=== PATIENT | female | born 1990 | race African-American/Black ===

== ENCOUNTER 2020-02-17 15:23 | Emergency (ER) | payer OTHER, SELFPAY ==
[2020-02-17 18:20] VITALS: BP 134/93; PULSE 87; RESP 16; TEMP 37.2; O2SAT 100; BMI 29.4
--- NOTE | 2020-02-17 18:48 | ED_ITS ---
HPI - Skin/Abscess/Foreign Bdy General Chief complaint: Wound/Laceration <SHASTA Barriga - Last Filed: 02/17/20 19:22> Stated complaint: ABSCESS <SHASTA Barriga - Last Filed: 02/17/20 19:22> Time Seen by Provider: 02/17/20 18:47 <SHASTA Barriga - Last Filed: 02/17/20 19:22> Source: patient <SHASTA Barriga - Last Filed: 02/17/20 19:22> Mode of arrival: ambulatory <SHASTA Barriga - Last Filed: 02/17/20 19:22> Limitations: no limitations <SHASTA Barriga - Last Filed: 02/17/20 19:22> History of Present Illness HPI narrative: 29 y/o presenting with left upper cheek abscess. Was recently on antibiotics for it with improvement however when antibiotics were completed the abscess recurred. She never had I&D, it spontaneously drained prior. <SHASTA Barriga - Last Filed: 02/17/20 19:22> MD complaint: abscess/boil <SHASTA Barriga - Last Filed: 02/17/20 19:22> Onset (ago): week(s) (2) <SHASTA Barriga - Last Filed: 02/17/20 19:22> Tetanus up to date: yes <SHASTA Barriga - Last Filed: 02/17/20 19:22> Location: face <SHASTA Barriga - Last Filed: 02/17/20 19:22> Severity: moderate <SHASTA Barriga - Last Filed: 02/17/20 19:22> Quality: stabbing and aching <SHASTA Barriga Last Filed: 02/17/20 19:22> Pain Consistency: intermittent <SHASTA Barriga - Last Filed: 02/17/20 19:22> Relieving factors: none <SHASTA Barriga Last Filed: 02/17/20 19:22> Exacerbating factors: palpation and movement <SHASTA Barriga - Last Filed: 02/17/20 19:22> Context: none <SHASTA Barriga Last Filed: 02/17/20 19:22> Associated symptoms: denies other symptoms <SHASTA Barriga Last Filed: 02/17/20 19:22> Treatments prior to arrival: none <SHASTA Barriga Last Filed: 02/17/20 19:22> Related Data Home medications: Previous Rx's Medication Instructions Recorded cephalexin [Keflex] 500 mg PO QID #28 cap 02/17/20 doxycycline monohydrate 100 mg PO BID #14 cap 02/17/20 <SHASTA Barriga Last Filed: 02/17/20 19:22> Allergies/Adverse reactions: Allergies Allergy/AdvReac Type Severity Reaction Status Date / Time N.K.D.A. Allergy Unknown Unknown Uncoded 02/17/20 18:28 <SHASTA Barriga Last Filed: 02/17/20 19:22> Review of Systems Review of Systems: Yes all other systems are reviewed and are negative <SHASTA Barriga Last Filed: 02/17/20 19:22> [facility] Past Medical History Medical History: Medical History (Updated 02/18/20 @ 00:01 by Luci Lyle) section wound complication Hypothyroid <SHASTA Barriga Last Filed: 02/17/20 19:22> Surgical History: Surgical History (Updated 02/17/20 @ 18:24 by Teresita Blum) S/P removal of thyroid nodule Status post removal of thyroid nodule <SHASTA Barriga Last Filed: 02/17/20 19:22> Social History Social History: Social History Smoked in Last 30 Days: No Use of substances other than those prescribed or required for medical reasons: No Advance Directives: No Advance Directives Information Provided: No <SHASTA Barriga Last Filed: 02/17/20 19:22> Physical Exam Vital Signs and I&O and Narrative: Vital Signs and I&O: Vital Signs Temp 99 F 02/17/20 19:45 Pulse 78 02/17/20 19:45 Resp 18 02/17/20 19:45 BP 133/86 02/17/20 19:45 Pulse Ox 100 02/17/20 19:45 Intake & Output 02/17/20 02/17/20 02/18/20 06:59 18:59 06:59 Weight 75.296 kg Body Mass Index 29.4 Appearance: Alert. Oriented X3. No acute distress. Face: 2cm x2cm abscess to superior left cheek with fluctuance and mild cellulitis Eyes: Pupils equal, round and reactive to light. ENT: Pharynx normal. Neck: Normal inspection. Neck supple. CVS: Normal heart rate and rhythm. Pulses normal. Respiratory: No respiratory distress. Breath sounds normal. Abdomen: Soft and nontender. Skin: Skin warm and dry. Normal skin color. Normal skin turgor. Extremities: No lower extremity edema. No lower extremity edema. Neuro: Oriented X 3. No motor deficit. No sensory deficit. <SHASTA Barriga Last Filed: 02/17/20 19:22> Vital Signs and I&O: Vital Signs Temp 99 F 02/17/20 19:45 Pulse 78 02/17/20 19:45 Resp 18 02/17/20 19:45 BP 133/86 02/17/20 19:45 Pulse Ox 100 02/17/20 19:45 Intake & Output 02/17/20 02/17/20 02/18/20 06:59 18:59 06:59 Weight 75.296 kg Body Mass Index 29.4 <Doug Lamb DO - Last Filed: 02/18/20 02:03> Course Course Hospital Course: facial abscess that is amenable to drainage - see procedure note <SHASTA Barriga Last Filed: 02/17/20 19:22> Procedures Abscess I/D Site: face <SHASTA Barriga Last Filed: 02/17/20 19:22> Side (if applicable): left <SHASTA Barriga Last Filed: 02/17/20 19:22> Local Anesthetic: lidocaine 2% <SHASTA Barriga Last Filed: 02/17/20 19:22> Technique: incised with blade <SHASTA Barriga Last Filed: 02/17/20 19:22> Sent for culture/gram staining?: No <SHASTA Barriga Last Filed: 02/17/20 19:22> Irrigation: Yes <SHASTA Barriga Last Filed: 02/17/20 19:22> Packing used?: iodoform <SHASTA Barriga - Last Filed: 02/17/20 19:22> Complications: pain <SHASTA Barriga Last Filed: 02/17/20 19:22> MDM - Skin/Abscess/Foreign Bdy Differential Diagnosis Differential diagnosis: Likely abscess of skin or subcutaneous tissue, allergic reaction to drug and cellulitis <SHASTA Barriga - Last Filed: 02/17/20 19:22> Discharge Plan Discharge Clinical Impression: Abscess <SHASTA Barriga Last Filed: 02/17/20 19:22> Patient Disposition: Home, Self-Care <SHASTA Barriga - Last Filed: 02/17/20 19:22> Instructions: Abscess Incision and Drainage (DC) <SHASTA Barriga Last Filed: 02/17/20 19:22> Additional Instructions: Use warm compresses to the area several times per day. Monitor for signs of worsening infection including redness, warmth, swelling and pain Continue BOTH antibitoics until they are gone <SHASTA Barriga - Last Filed: 02/17/20 19:22> Prescriptions: New doxycycline monohydrate 100 mg capsule 100 mg PO BID Qty: 14 RF: 0 cephalexin [Keflex] 500 mg capsule 500 mg PO QID Qty: 28 RF: 0 <SHASTA Barriga - Last Filed: 02/17/20 19:22> Stand Alone Forms: Work/School Release <SHASTA Barriga - Last Filed: 02/17/20 19:22> Interventions: ED Discharge Assessment Last Done: 02/17/20 20:28 <SHASTA Barriga Last Filed: 02/17/20 19:22> Discharge Date/Time: 02/17/20 20:00 <SHASTA Barriga - Last Filed: 02/17/20 19:22>
--- NOTE | 2020-02-17 19:30 | PC.NURSE ---
PT ABSCESS TO LEFT UPPER CHEEK CLEANED AND DRAINED AND DSD APPLIED BY SHASTA ROSALES.
[2020-02-17 19:45] VITALS: BP 133/86; PULSE 78; RESP 18; TEMP 37.2; O2SAT 100
[2020-02-17] MEDS: Lidocaine HCl 2 % MPF 5 ML VIAL INFILTRATI (19:54)
[2020-02-17] MEDS: cephALEXin 500 MG CAPSULE PO (19:56)
== END 2020-02-17 20:00 | disposition home or self-care (01) ==
PROVIDERS: Emergency Provider Emergency Medicine; PCP Internal Medicine
DX: L02.01 Cutaneous abscess of face (principal)
CPT/HCPCS: 10060; 90471; 99284

== ENCOUNTER 2021-01-27 17:21 | Emergency (ER) | payer OTHER, SELFPAY ==
[2021-01-27 19:29] VITALS: BP 132/91; PULSE 100; RESP 18; TEMP 37.8; O2SAT 98; BMI 30.3
[2021-01-27] MEDS: oxyCODONE HCl Immed Release 5 MG TABLET PO (20:24)
--- NOTE | 2021-01-27 20:33 | ED_ITS ---
HPI - Skin/Abscess/Foreign Bdy General Chief complaint: Skin/Abscess/Foreign Body Stated complaint: Abscess Time Seen by Provider: 01/27/21 20:03 Source: patient Mode of arrival: ambulatory Limitations: no limitations History of Present Illness HPI narrative: patient presents to ED for pain under left axillary area. Patient had a mass there for years but now has painful past couple days. patient denies any drainage from the area. Related Data Previous Rx's Medication Instructions Recorded cephalexin 500 mg capsule (Keflex) 500 mg PO QID #28 cap 02/17/20 doxycycline monohydrate 100 mg 100 mg PO BID #14 cap 02/17/20 capsule levothyroxine 88 mcg tablet 88 mcg PO DAILY 90 Days #90 tab 03/14/20 doxycycline hyclate 100 mg capsule 100 mg PO BID 7 Days #14 cap 01/27/21 oxycodone-acetaminophen 5 mg-325 1 tab PO TID PRN #9 tab 01/27/21 mg tablet (Percocet) Allergies Allergy/AdvReac Type Severity Reaction Status Date / Time N.K.D.A. Allergy Unknown Unknown Uncoded 02/17/20 18:28 Review of Systems Review of Systems: Yes all other systems are reviewed and are negative Constitutional: Constitutional: Reports as per HPI and Reports no additional constitutional complaints Eyes: Eyes: Reports as per HPI and Reports no additional eye complaints ENT: Reports system reviewed and no additional complaints, except as documented and Reports as per HPI Cardiovascular: Cardiovascular: Reports as per HPI and Reports no additional cardiovascular complaints Respiratory: Respiratory: Reports as per HPI and Reports no additional respiratory complaints Gastrointestinal: Gastrointestinal: Reports as per HPI and Reports no additi onal gastrointestinal complaints Genitourinary: Genitourinary: Reports no additional female genitourinary complaints and Reports as per HPI Musculoskeletal: Musculoskeletal: Reports no additional musculoskeletal complaints and Reports as per HPI Integumentary/Breasts: Skin/Breast: Reports system reviewed and no additional complaints, except as docu and Reports as per HPI Comments: Left axillary lump Neurologic: Reports system reviewed and no additional complaints, except as documented and Reports as per HPI Psychiatric: Psychiatric: Reports no additional psychiatric complaints and Reports as per HPI PMFSH Past Medical History Medical History (Updated 01/28/21 @ 00:01 by Luci Lyle) section wound complication Hypothyroid Surgical History (Updated 10/02/20 @ 18:24 by Teresita Maria S/P removal of thyroid nodule Status post removal of thyroid nodule Social History Social History Advance Directives: No Patient : No Physical Exam Vital Signs: Vital Signs: Last Vital Signs Temp 100.1 F 01/27/21 19:29 Pulse 100 01/27/21 19:29 Resp 18 01/27/21 19:29 BP 132/91 H 01/27/21 19:29 Pulse Ox 98 01/27/21 19:29 Body Mass Index 30.3 Const: General: cooperative, healthy appearing, comfortable, no acute distress, well developed, alert, awake and Physically active Orientation/consciousness: patient oriented x3 HENMT: Head: Yes normal to inspection, Yes No palpable skull fracture present, Yes normocephalic, Yes atraumatic and No abrasion Eyes: General: appearance normal, both eyes and all related structures Neck: Neck: Yes normal visual inspection, Yes full ROM, Yes no lymphadenopathy, Yes no meningeal signs, Yes trachea midline, Yes supple and No tender Chest: Chest palpation & inspection: normal inspection of the chest and normal palpation of entire chest wall Chest/axillae images: 1. positive for tender hidradenitis suppperiva. negative for any drainage. Resp: Effort & Inspection: normal respiratory effort and able to speak in complete sentences Auscultation: clear to auscultation bilaterally Cardio: Jugular venous distension: no JVD Heart sounds: S1 normal heart sound present and S2 normal heart sound present : General: No CVA tenderness and Yes no CVA tenderness Back/Spine/Pelvis: Back: no CVA tenderness, No CVA tenderness and No back tenderness Skin: General skin exam: no rashes or lesions noted and elasticity normal Neuro: General: patient oriented x3, no meningeal signs and CN's II-XI intact bilaterally Cranial nerves: Yes CN's II-XII intact bilaterally Extrem: General: Yes normal to inspection and Yes full ROM Psych: Appearance: grossly normal, well kempt and not disheveled Course Course Course Narrative: patient given Tylenol and oxycodone. Reevaluation(s) Reevaluation #1: Physical exam indicate hidradenitis. Patient given 1st dose of doxycycline the ER patient given number of surgeon to follow-up to call. Time: 20:40 MDM - Skin/Abscess/Foreign Bdy MDM Narrative Medical decision making narrative: Hidradenitis suppurativa Discharge Plan Discharge Clinical Impression: Hidradenitis suppurativa of left axilla Patient Disposition: Home, Self-Care Instructions: Hidradenitis Suppurativa (ED) Additional Instructions: return to the ED immediately for any worsening pain, swelling, pus discharge, foul odor, weakness, intractable fever, chills, any other concerning symptoms. Recommend warm compress 4 times a day for 15 minutes on left axillary mass. Do any follow-up with surgery for hidradenitis. Prescriptions: New doxycycline hyclate 100 mg capsule 100 mg PO BID 7 Days Qty: 14 RF: 0 oxycodone-acetaminophen [Percocet] 5-325 mg tablet 1 tab PO TID PRN (Reason: pain) Qty: 9 RF: 0 No Action levothyroxine 88 mcg tablet 88 mcg PO DAILY 90 Days Qty: 90 RF: 3 doxycycline monohydrate 100 mg capsule 100 mg PO BID Qty: 14 RF: 0 cephalexin [Keflex] 500 mg capsule 500 mg PO QID Qty: 28 RF: 0 Referrals: Ronny Resendiz MD [Physician] - 2 days (left Hidranedinitis suppurativa) Stand Alone Forms: Work/School Release Interventions: ED Discharge Assessment Last Done: 01/27/21 21:22 Discharge Date/Time: 01/27/21 21:24 Print Language: Sinhala
[2021-01-27] MEDS: Acetaminophen 325 MG TABLET 650 MG PO (20:44)
== END 2021-01-27 21:24 | disposition home or self-care (01) ==
PROVIDERS: Emergency Provider Emergency Medicine; PCP Internal Medicine
DX: L73.2 Hidradenitis suppurativa (principal); Z79.899 Other long term (current) drug therapy
CPT/HCPCS: 99284

== ENCOUNTER 2021-04-24 20:24 | Emergency (ER) | payer OTHER, SELFPAY ==
--- NOTE | ~2021-04-24 | CT_ITS ---
EXAMINATION: CT ABDOMEN AND PELVIS WITH CONTRAST CLINICAL INFORMATION: Bilateral flank pain COMPARISON: None TECHNIQUE: Multidetector volumetric images were obtained from the superior aspect of the liver through the pubic symphysis following administration 85 mL of Omnipaque 350 intravenous contrast. Sagittal and coronal reformatted images were obtained on the technologist's workstation. Oral contrast: No This CT examination was performed using dose optimization techniques as appropriate, variously including the following: *Automated exposure control *Adjustment of mA and/or kV according to patient size (this includes techniques or standardized protocols for targeted exams where dose is matched to indication/reason for exam; i.e. extremities or head) *Use of iterative reconstruction technique DLP: 554 mGy-cm FINDINGS: LUNG BASES: The visualized lung bases are unremarkable. LIVER, GALLBLADDER, AND BILIARY TREE: The liver is normal in size, shape, and attenuation. No focal hepatic lesion or biliary ductal dilatation is present. The gallbladder is contracted but otherwise unremarkable with no evidence of radiopaque gallstones, gallbladder wall thickening, or obvious pericholecystic inflammatory changes. PANCREAS: Unremarkable. SPLEEN: Unremarkable. ADRENAL GLANDS: Unremarkable. KIDNEYS AND URETERS: The kidneys are normal in size, shape, and attenuation. A nonobstructing 3 mm left upper pole renal calculus is present. The stone measures 527 Hounsfield units which includes a fair amount of partial volume averaging. The stone is 9 cm from the posterior axillary line. No hydronephrosis, hydroureter, or other calculi seen. No perinephric stranding. BLADDER: Unremarkable. GASTROINTESTINAL TRACT: The small and large bowel are unremarkable. The appendix is unremarkable. ABDOMINAL WALL: No significant hernia is appreciated. There is some mild diastases of the rectus muscles above the umbilicus. LYMPH NODES: No retroperitoneal lymphadenopathy. Some prominent inguinal lymph nodes are present. VASCULAR: Unremarkable. PELVIC VISCERA: An anteverted slightly retroflexed uterus is present. Some small ovarian cysts are present bilaterally. An abnormal adnexal mass or free intraperitoneal fluid is not present. OSSEOUS STRUCTURES: Unremarkable. CT/CT abdomen pelvis w con IMPRESSION: No significant abnormality is detected aside from the presence of a 3 mm nonobstructing left renal calculus.. Fleischner guidelines were followed.
--- NOTE | ~2021-04-24 | XR_ITS ---
EXAMINATION: XR CHEST CLINICAL INFORMATION: Chest pressure COMPARISON: Chest x-ray 08/06/2018 TECHNIQUE: Frontal view of the chest was obtained. FINDINGS: No significant abnormality is noted involving the heart, lungs, mediastinum, bony thorax or soft tissues. XR/XR chest 1V IMPRESSION: Unremarkable examination.
[2021-04-24 20:28] VITALS: BP 151/91; PULSE 75; RESP 18; TEMP 36.7; O2SAT 100; BMI 30.1
--- NOTE | 2021-04-24 20:33 | ECG_ITS ---
Test Reason : CP Blood Pressure : / mmHG Vent. Rate : 075 BPM Atrial Rate : 075 BPM P-R Int : 140 ms QRS Dur : 082 ms QT Int : 376 ms P-R-T Axes : 043 028 028 degrees QTc Int : 419 ms Normal sinus rhythm Nonspecific T wave abnormality Abnormal ECG When compared with ECG of 10-DEC-2018 19:46, Nonspecific T wave abnormality no longer evident in Lateral leads Referred By: Generic ED Physician Electronically Signed By:Keanu Patel
[2021-04-24 21:09] LABS: MANUAL DIFF FLAG NO
[2021-04-24 21:10] LABS: Basophils Percent Auto 0.4 % (0-2); Eosinophils Absolute Auto 0.2 X10*3/uL (0.0-0.4); Eosinophils Percent Auto 2.5 % (0-4); Hematocrit 37.7 % (37.0-47.0); Hemoglobin 12.7 g/dl (12.0-16.0); Imm Gran Abs Auto 0.01 X10*3/uL (0.00-0.03); Imm Gran Pct Auto 0.1 % (0.0-0.4); Lymphocytes Percent Auto 36.1 % (20-40); Mean Corpuscular HGB Conc 33.7 g/dl (31.0-35.0); Mean Corpuscular Hemoglobin 29.8 pg (27.0-33.0); Mean Corpuscular Volume 88.5 fL (80.0-98.0); Mean Platelet Volume 9.5 fL (9.4-12.3); Monocytes Absolute Auto 0.5 X10*3/uL (0.1-1.2); Monocytes Percent Auto 5.6 % (2-11); Neutrophils Absolute Auto 4.6 x10*3/uL (2.0-8.3); Neutrophils Percent Auto 55.3 % (45-73); Platelet Count 295 X10*3/uL (160-400); Red Blood Count 4.26 X10*6/uL (4.20-5.50); Red Cell Distribution Width 14.3 % (11.0-16.0); White Blood Count 8.3 X10*3/uL (4.8-10.8)
[2021-04-24 21:28] LABS: Anion Gap 12 (12-20); Blood Urea Nitrogen 9 mg/dL (9-16); Calcium 9.3 mg/dL (8.4-10.2); Carbon Dioxide 26 mmol/L (22-29); Chloride 107 mmol/L (96-108); Creatinine Clr Calc Pharmacy 102.7; Estimated Glomerular Filt Rate > 60; Glucose Random 89 mg/dL (60-115); Potassium 3.7 mmol/L (3.3-5.1); Sodium 141 mmol/L (135-145)
[2021-04-24 21:33] LABS: Troponin-I High Sensitivity < 3.5 ng/L (<3.5-17.0)
--- NOTE | 2021-04-24 22:36 | ED.CHESTPAIN ---
HPI - Chest Pain General Chief Complaint: Chest Pain Stated Complaint: chest pain and maxim leg pain Time Seen by Provider: 04/24/21 22:36 Source: patient Mode of arrival: ambulatory History of Present Illness HPI narrative: 31-year-old female with presentation of 1 month lower back discomfort without saddle anesthesia and the pain radiates into both lower extremities and is not limited to the posterior aspect. Patient denies any bowel or bladder dysfunction and denies any fever, chills, sore throat, new cough, shortness of breath, nausea/vomiting/diarrhea, urinary pain/burning/frequency. She denies pursuing evaluation by her primary care provider and comes in tonight because she began having substernal chest pressure that did not change with exertion, position, respiration, and is described as nonradiating. Patient denies any recent exercise regimens and states that the bilateral leg pain has been so significant she has to walk with her toes curled under . Related Data Previous Rx's Medication Instructions Recorded cephalexin 500 mg capsule (Keflex) 500 mg PO QID #28 cap 02/17/20 doxycycline monohydrate 100 mg 100 mg PO BID #14 cap 02/17/20 capsule levothyroxine 88 mcg tablet 88 mcg PO DAILY 90 Days #90 tab 03/14/20 doxycycline hyclate 100 mg capsule 100 mg PO BID 7 Days #14 cap 01/27/21 oxycodone-acetaminophen 5 mg-325 1 tab PO TID PRN #9 tab 01/27/21 mg tablet (Percocet) Allergies Allergy/AdvReac Type Severity Reaction Status Date / Time No Known Allergies Allergy Verified 04/24/21 20:28 Review of Systems Review of Systems: Pertinent positives and negatives as stated in HPI 10 point review of systems is otherwise negative. [facility] Past Medical History Source: nursing notes reviewed Medical History section wound complication Hypothyroid Surgical History S/P removal of thyroid nodule Status post removal of thyroid nodule Social History Social History Advance Directives: No Advance Directives Information Provided: No Patient : No Physical Exam Vital Signs: Vital Signs: Last Vital Signs Temp 98.1 F 04/24/21 20:28 Pulse 75 04/24/21 20:28 Resp 18 04/24/21 20: BP 151/91 H 04/24/21 20: Pulse Ox 100 04/24/21 20: BMI result Body Mass Index 30.1 VITAL SIGNS: Reviewed. GENERAL: Well developed, well nourished, in no acute distress. HEAD: Normocephalic/atraumatic EYES: PERRLA, EOMI intact without pain, no nystagmus EARS: Ext canals without abnormality NOSE: Nares patent bilateral OROPHARYNX: no oral lesions noted, posterior pharynx clear NECK: Supple, no adenopathy, scar to anterior aspect consistent with thyroid surgery LUNGS: Normal breath sounds. No adventitious sounds or accessory muscle use. SpO2<100> CARDIOVASCULAR: Regular rate and rhythm without noted murmurs, no JVD or lower extremity edema. ABDOMEN: Soft, non-tender, non-distended with bowel sounds, no CVA tenderness MUSCULOSKELETAL: No tenderness, deformities, or effusions noted on gross inspection. EXTREMITIES: No cyanosis, clubbing or edema. SKIN: Inspection of the skin reveals no rashes NEUROLOGIC: Alert and oriented x 4. Strength and sensation to light touch were grossly intact x 4. Course Course Course Narrative: 31-year-old female with history and clinical presentation suggestive of possible musculoskeletal and will evaluate for electrolyte, infection, rhabdo. Patient has no history of IVDA or recent sore throat or procedural interventions. PERC negative. Patient provided with combination analgesics. Review of all investigations otherwise negative for acute findings and on re-evaluation patient states her pain has completely resolved after receiving the combination analgesics. She was strongly encouraged to follow-up with primary care provider for further outpatient workup and management and was also given analgesic regimen. MDM - Chest Pain Lab Data Result diagrams: 04/24/21 21:02 04/24/21 21:02 Labs: Lab Results 04/24/21 04/24/21 04/24/21 Range/Units 21: 21: 21: WBC 8.3 (4.8-10.8) X10*3/uL RBC 4.26 (4.20-5.50) X10*6/uL Hgb 12.7 (12.0-16.0) g/dl Hct 37.7 (37.0-47.0) % MCV 88.5 (80.0-98.0) fL MCH 29.8 (27.0-33.0) pg MCHC 33.7 (31.0-35.0) g/dl RDW 14.3 (11.0-16.0) % Plt Count 295 (160-400) X10*3/uL MPV 9.5 (9.4-12.3) fL Immature Gran % (Auto) 0.1 (0.0-0.4) % Neut % (Auto) 55.3 (45-73) % Lymph % (Auto) 36.1 (20-40) % [place] % (Auto) 5.6 (2-11) % Eos % (Auto) 2.5 (0-4) % Baso % (Auto) 0.4 (0-2) % Lymph # (Auto) 3.0 (1.2-4.9) X10*3/uL [place] # (Auto) 0.5 (0.1-1.2) X10*3/uL Eos # (Auto) 0.2 (0.0-0.4) X10*3/uL Baso # (Auto) 0.0 (0.0-0.2) X10*3/uL Abs Immat Gran (auto) 0.01 (0.00-0.03) X10*3/uL Absolute Neuts (auto) 4.6 (2.0-8.3) x10*3/uL Absolute Nucleated RBC 0.000 (0.0-0.012) X10*3/uL Nucleated RBC % (auto) 0.0 (0.0-0.2) /100WBC ESR (0-20) MM/HR Sodium 141 (135-145) mmol/L Potassium 3.7 (3.3-5.1) mmol/L Chloride 107 (96-108) mmol/L Carbon Dioxide 26 (22-29) mmol/L Anion Gap 12 (12-20) BUN 9 (9-16) mg/dL Creatinine 0.78 (0.5-1.4) mg/dL Estim Creat Clear Calc 102.7 Estimated GFR > 60 Random Glucose 89 (60-115) mg/dL Calcium 9.3 (8.4-10.2) mg/dL Total Creatine Kinase 138 (26-140) U/L Troponin I High Sens < 3.5 (<3.5-17.0) ng/L C-Reactive Protein 0.67 H (< or = 0.50) mg/dL TSH 3.14 (0.32-4.0) uIU/mL COVID-19 (HERB) (Negative) COVID-19 Clin Com 04/24/21 04/25/21 Range/Units 21:02 00:46 WBC (4.8-10.8) X10*3/uL RBC (4.20-5.50) X10*6/uL Hgb (12.0-16.0) g/dl Hct (37.0-47.0) % MCV (80.0-98.0) fL MCH (27.0-33.0) pg MCHC (31.0-35.0) g/dl RDW (11.0-16.0) % Plt Count (160-400) X10*3/uL MPV (9.4-12.3) fL Immature Gran % (Auto) (0.0-0.4) % Neut % (Auto) (45-73) % Lymph % (Auto) (20-40) % [place] % (Auto) (2-11) % Eos % (Auto) (0-4) % Baso % (Auto) (0-2) % Lymph # (Auto) (1.2-4.9) X10*3/uL [place] # (Auto) (0.1-1.2) X10*3/uL Eos # (Auto) (0.0-0.4) X10*3/uL Baso # (Auto) (0.0-0.2) X10*3/uL Abs Immat Gran (auto) (0.00-0.03) X10*3/uL Absolute Neuts (auto) (2.0-8.3) x10*3/uL Absolute Nucleated RBC (0.0-0.012) X10*3/uL Nucleated RBC % (auto) (0.0-0.2) /100WBC ESR 12 (0-20) MM/HR Sodium (135-145) mmol/L Potassium (3.3-5.1) mmol/L Chloride (96-108) mmol/L Carbon Dioxide (22-29) mmol/L Anion Gap (12-20) BUN (9-16) mg/dL Creatinine (0.5-1.4) mg/dL Estim Creat Clear Calc Estimated GFR Random Glucose (60-115) mg/dL Calcium (8.4-10.2) mg/dL Total Creatine Kinase (26-140) U/L Troponin I High Sens (<3.5-17.0) ng/L C-Reactive Protein (< or = 0.50) mg/dL TSH (0.32-4.0) uIU/mL COVID-19 (HERB) Negative (Negative) COVID-19 Clin Com See Note Discharge Plan Discharge Clinical Impression: Atypical chest pain Patient Disposition: Home, Self-Care Instructions: Chest Pain (ED) Additional Instructions: 1. Tylenol 1000 mg, orally, every 6 hours as needed for pain control. Do not exceed 4000 mg within 24 hours. 2. Ibuprofen 400 mg, orally with milk or food, every 6 hours as needed for pain control. You may take this medication with Tylenol for increased symptom relief. 3. Lidocaine patch, these are available [id number] and should be apply to area of maximal pain as directed on the outside packaging. 4. Follow-up with your primary care provider in the next 1-2 days for further outpatient workup and management. Return to the ER for worsening symptoms. Prescriptions: No Action levothyroxine 88 mcg tablet 88 mcg PO DAILY 90 Days Qty: 90 RF: 3 doxycycline hyclate 100 mg capsule 100 mg PO BID 7 Days Qty: 14 RF: 0 oxycodone-acetaminophen [Percocet] 5-325 mg tablet 1 tab PO TID PRN (Reason: pain) Qty: 9 RF: 0 doxycycline monohydrate 100 mg capsule 100 mg PO BID Qty: 14 RF: 0 cephalexin [Keflex] 500 mg capsule 500 mg PO QID Qty: 28 RF: 0 Referrals: Arabella Bryan MD [Primary Care Provider] - 2 days
[2021-04-24] MEDS: Lidocaine 4 % Patch ADH..PATCH 1 PATCH TRANSDERMA (23:27)
[2021-04-24] MEDS: Acetaminophen 325 MG TABLET 975 MG PO (23:27)
[2021-04-24] MEDS: Ketorolac Tromethamine 15 MG/ML VIAL IM (23:27)
--- NOTE | 2021-04-24 23:31 | PC.NURSE ---
Pt medicated per MAR, aware of plan to CT. Pt states I can't, I need to get my kids. MD notified of pts request to leave.
[2021-04-25] LABS: Thyroid Stimulating Hormone 3.14 uIU/mL (0.32-4.0)
[2021-04-25 00:13] LABS: C Reactive Protein 0.67 mg/dL (< or = 0.50)
[2021-04-25] MEDS: iohexoL 350 MG/ML 100 ML INFUS..BTL 85 ML IV (00:22)
[2021-04-25 00:52] LABS: Erythrocyte Sedimentation Rate 12 MM/HR (0-20)
[2021-04-25 01:07] LABS: COVID-19 Test Negative (Negative); IDNOW Serial# 9DD0AD1C
[2021-04-25 01:18] VITALS: BP 131/90; PULSE 76; RESP 16; O2SAT 100
== END 2021-04-25 01:23 | disposition home or self-care (01) ==
PROVIDERS: Emergency Provider Student in an Organized Health Care Education/Training Program; PCP Internal Medicine
DX: R07.89 Other chest pain (principal); Z20.822 Contact with and (suspected) exposure to COVID-19
CPT/HCPCS: 36415; 71045; 74177; 80048; 82550; 84443; 84484; 85025; 85652; 86140; 87635; 93005; 96372; 99284; J1885; Q9967

== ENCOUNTER 2021-07-27 08:48 | Outpatient (REF) | payer OTHER, SELFPAY ==
[2021-07-29 04:35] LABS: HBS Num1 124.14 mIU/mL (0-7.99); HBc Num1 0.15 S/CO (0.00-0.79); Hepatitis B Core Antibody Nonreactive (Nonreactive); ~Hepatitis B Surface Antibody REACTIVE (Nonreactive)
[2021-07-29 04:42] LABS: Hepatitis B Surface Antigen Negative (Negative)
== END 2021-07-27 08:49 | disposition home or self-care (01) ==
LOC: HO.LAB 08:48
PROVIDERS: PCP Internal Medicine; Visit Provider Internal Medicine
DX: Z23 Encounter for immunization (principal); Z11.3 Encounter for screening for infections with a predominantly sexual mode of transmission
CPT/HCPCS: 36415; 86704; 86706; 86735; 86762; 86765; 86787; 87340

== ENCOUNTER → 2022-01-01 08:59 | Outpatient (BNVA) | payer SELFPAY | PROVIDERS: PCP Internal Medicine | DX: Z02.83 Encounter for blood-alcohol and blood-drug test (principal) ==

== ENCOUNTER 2022-05-22 10:44 | Outpatient (REF) | payer OTHER, SELFPAY ==
--- NOTE | ~2022-05-22 | MM_ITS ---
EXAMINATION: MM DIAGNOSTIC DIGITAL BREAST TOMOSYNTHESIS, BILATERAL US DIAGNOSTIC ULTRASOUND BREAST, RIGHT CLINICAL INFORMATION: 32-year-old with chronic palpable area mid upper outer right breast. History hidradenitis suppurativa. No prior breast imaging. The lifetime risk of breast cancer based on the Tyrer-Cuzick Model is 13%. COMPARISON: None (current study represents initial baseline exam). TECHNIQUE: Digital breast tomosynthesis is performed in both the craniocaudal and mediolateral oblique views along with computer-aided detection (CAD). Synthesized 2D images are generated from the tomosynthesis. Ultrasound right breast is targeted to the areas of palpable concern mid upper outer right breast along with additional imaging right axilla. Grayscale imaging and color Doppler are performed without and with harmonics. FINDINGS: Mammography: The breasts are heterogeneously dense, which may obscure small masses (ACR BI-RADS breast composition Category c). The breast parenchymal pattern is unremarkable with no significant mass or architectural abnormality. No abnormal calcifications. There is incidental intramammary node mid upper outer left breast measuring approximately 0.9 cm and a intramammary node mid upper outer right breast measuring approximately 0.7 cm. There is no significant focal skin thickening and no coarsening of the Patrick's ligaments. There is an oval lesion right axilla measuring approximately 2.2 cm. Left axilla are unremarkable. Ultrasound: Ultrasound right breast demonstrates subtle hypoechoic intradermal lesion long axis parallel to the skin 9:00 position 9 cm from nipple measuring approximately 0.3 cm thickness by 1.4 cm across. There is no surrounding hyperemia on color Doppler. No subdermal extension. Patient notes that this is a chronic finding. There is a second similar-appearing slightly smaller intradermal hypoechoic lesion 10:00 position 9 cm from nipple measuring 0.3 cm thickness by 0.9 cm across. This shows no surrounding hyperemia on color Doppler and no subdermal extension. Patient also notes that this is a chronic finding. Additional ultrasound right axilla demonstrates a heterogeneous predominantly cystic subdermal fluid collection measuring approximately 2.2 x 1.0 x 1.9 cm. There is increased through-transmission of sound. Prominent surrounding hyperemia areas present on color Doppler. Patient notes that this is a chronic finding and mildly tender. Results are discussed with the patient at time of visit. The right axillary lesion is inflamed. Availability of surgical management discussed. Navigator to call report to PCP. MM/MM tomosynthesis diagnostic BI IMPRESSION: -No mammographic evidence of malignancy. -Complex oval subdermal fluid collection right axilla with prominent surrounding hyperemia on color Doppler. Finding consistent with the patient's history of hidradenitis suppurativa. -Two small intradermal lesions right breast 9:00 and 10:00 positions. No subdermal extension or surrounding hyperemia on color Doppler. ASSESSMENT: BI-RADS 2: Benign RECOMMENDATION: 1. Patient should be managed based on the clinical impression. Surgical consult may be considered for the subdermal right axillary fluid collection with surrounding hyperemia. 2. Otherwise, routine annual screening mammography. This patient's information was entered into a reminder system with a target due date for their next mammogram.
== END 2022-05-22 10:45 | disposition home or self-care (01) ==
LOC: HO.MAMMO 10:44
PROVIDERS: PCP Internal Medicine; Visit Provider Internal Medicine
DX: N63.11 Unspecified lump in the right breast, upper outer quadrant (principal)
CPT/HCPCS: 76642; 77062; 77066

== ENCOUNTER → 2022-06-17 15:19 | Outpatient (BNVA) | payer OTHER, SELFPAY | PROVIDERS: PCP Internal Medicine; Referring Provider Internal Medicine; Visit Provider Surgery | DX: L73.2 Hidradenitis suppurativa (principal) | CPT/HCPCS: 99202 ==

== ENCOUNTER → 2022-07-17 14:59 | Outpatient (BNVA) | payer OTHER, SELFPAY | PROVIDERS: PCP Internal Medicine; Referring Provider Internal Medicine; Visit Provider Surgery | DX: L73.2 Hidradenitis suppurativa (principal) | CPT/HCPCS: 99212 ==

== ENCOUNTER 2022-08-04 05:58 | Day surgery (SDC) | payer OTHER, SELFPAY ==
[2022-07-28 15:33] VITALS: BMI 30.9
--- NOTE | 2022-08-01 10:49 | P.CONAN_ITS ---
Documented by User: Lucille Lewis NP 08/01/22 10:49 HPI - Anesthesia Eval Consult details Narrative: 32yo F for Bilateral Excision Hidradenitis of axillas PMFSH Active Problems Active Problems: All Active Problems (Updated 07/28/22 @ 15:33 by Allyn Jane RN) Allergic rhinitis (Acute) Environmental allergies (Acute) Physical exam (Acute) Encounter to establish care with new doctor (Acute) Tachycardia (Acute) Dizziness (Acute) Suppurative hidradenitis (Acute) ADD (attention deficit disorder) (Acute) Breast mass, right (Acute) Hypothyroid (Acute) Immunization due (Acute) Past Medical History Medical History ADD (attention deficit disorder) section wound complication Hypothyroid Immunization due Family History Family History Maternal Aunt Breast cancer Paternal Grandmother Ovarian cancer Surgical History Surgical History History of delivery Hx of thyroidectomy Social History Social History Housing: House Are you a primary eye care professional to a significant other at home: No Do you presently have visiting nurse or other home services: No Alcohol intake: never Patient Tobacco Use Status: Never used Tobacco e-Cigarette/Vaping Use: Never Used Second Hand Smoke Exposure: No Are you DNR?: No Advance Directives: No Advance Directives Information Provided: Yes Advance Directives on File: No Recently lost weight without trying: No Eating poorly because of decreased appetite: No Nutrition Risks: No Nutritional Risk Patient : No FDLMP: yrs ago : No Current occupational status: employed Cognitive needs: No Hearing needs: No Vision needs: Yes Meds Allergies Allergy/AdvReac Type Severity Reaction Status Date / Time No Known Allergies Allergy Verified 07/28/22 15:25 Home Medications Medication Instructions Recorded Confirmed Last Taken Type loratadine 10 mg tablet 1 tab PO DAILY 07/28/22 07/28/22 Unknown History Exam Exam Date and Time: August 01, 2022 1049 Height,Weight and Vital Signs: Height 5 ft 3 in Weight 79.379 kg Assessment and Plan Assessment Anesthesia Assessment: Chart Reviewed Documented by User: Elsa Francis MD 08/04/22 07:36 PMFSH Past Medical History Medical History ADD (attention deficit disorder) section wound complication Hypothyroid Immunization due Family History Family History Maternal Aunt Breast cancer Paternal Grandmother Ovarian cancer Family history of problems with anesthesia: No Surgical History Surgical History History of delivery Hx of thyroidectomy History of Problems with Anesthesia: No Social History Social History Housing: House Are you a primary eye care professional to a significant other at home: No Do you presently have visiting nurse or other home services: No Alcohol intake: never Patient Tobacco Use Status: Never used Tobacco e-Cigarette/Vaping Use: Never Used Second Hand Smoke Exposure: No Are you DNR?: No Advance Directives: No Advance Directives Information Provided: Yes Advance Directives on File: No Recently lost weight without trying: No Eating poorly because of decreased appetite: No Nutrition Risks: No Nutritional Risk Patient : No FDLMP: yrs ago : No Current occupational status: employed Cognitive needs: No Hearing needs: No Vision needs: Yes Meds Allergies Allergy/AdvReac Type Severity Reaction Status Date / Time No Known Allergies Allergy Verified 07/28/22 15:25 Home Medications Medication Instructions Recorded Confirmed Last Taken Type loratadine 10 mg tablet 1 tab PO DAILY 07/28/22 07/28/22 Unknown History Exam Height,Weight and Vital Signs: Height 5 ft 3 in Weight 79.379 kg Vital Signs Temp Pulse Resp BP Pulse Ox O2 Del Method 08/04/22 06:11 98.7 F 97 16 142/99 H 98 Room Air Pertinent Lab Results Pertinent Lab Results: Lab Results 03/20/23 Range/Units 06:02 Urine Test NEGATIVE (NEGATIVE) Airway Mallampati Class: III TM Dist: >3cm Neck ROM: Full Loose/Missing/Broken Teeth: No (Denies broken, loose, missing teeth) Heart: RRR Lungs: CTAB Assessment and Plan Assessment Anesthesia Assessment: Anesthesia Plan Discussed Final Anesthetic Review Family History of Problems with Anesthesia: No History of Problems with Anesthesia: No NPO: Yes ASA Class: II Final Preanesthetic Review: No Changes in Pt Med Stat, Meds/Allgs Chart Re viewed, Consent Obtained/Reviewed and Anes Risks/Benef Reviewed Patient Risk: Intermediate Procedure Risk: Low Assessment/Block/Sedation in SS: Assess/Block/Sedation-SS Anesthetic Plan Anesthetic Plan: GA Disposition: Standard PACU
[2022-08-04 06:11] VITALS: BP 142/99; PULSE 97; RESP 16; TEMP 37.1; O2SAT 98
[2022-08-04 06:17] LABS: UPreg QC Valid YES; Urine Pregnancy NEGATIVE (NEGATIVE)
[2022-08-04] MEDS: Lactated Ringers 1,000 ML 100 ML IVCONT (06:33)
--- NOTE | 2022-08-04 09:27 | P.OP_ITS ---
Operative Note Operative Note Date of Service: 08/04/22 Narrative: Preoperative diagnosis: Bilateral axillary hidradenitis Postoperative diagnosis: same Procedure: wide excision bilateral axillary hidradenitis Surgeon: Julian Tena MD Obstetrics Scrub Nurse: SIVA Winter Anesthesia: general LMA Indications for procedure: 32-year-old female patient with complaints of painful hidradenitis with drainage in bilateral axilla. Operative findings: Left axilla with extensive scarring and chronic hidradenitis. Right axilla with a small area of hidradenitis with cutaneous fistula Specimen: bilateral axillary hidradenitis Estimated blood loss: 20 mL Complications: none Procedure details: patient was brought to the OR placed in a supine position. After administering general anesthesia the patient's bilateral axilla were prepped with Betadine and draped in a sterile fashion. A surgical time-out was called and the consent confirmed. Patient received preoperative antibiotics and Venodyne boots were in place. Local anesthesia consisting of 0.5% Sensorcaine with epinephrine was then infiltrated starting in the right axilla. An elliptical incision was created oriented longitudinally across the axilla to include the axillary fistula. This was carried out through subcutaneous tissue. Incision measuring approximately 5 cm was then created around the hidradenitis. Electrocautery was then used to dissect the specimen off the subcutaneous tissue. This was sent to pathology for further examination. Hemostasis was assured using electrocautery. Dermis was then reapproximated using interrupted 3-0 Polysorb sutures. Skin was closed using a running subcuticular 4-0 Polysorb suture. A single 3-0 nylon suture was placed as a retention in the center of the incision. Sterile dressings consisting of 2 x 2 gauze and Tegaderm were then applied. Attention was then directed to the left axilla. Wider area of chronic scarring was identified. Local anesthesia was infiltrated circumferentially around the lesion. A wide area of excision was then performed measuring approximately 10 cm x 5 cm across the axilla and oriented transversely. This was carried out through subcutaneous tissue and around the chronic scarring. A small amount of purulent discharge was noted within the specimen. Specimen was passed off the table and sent to pathology for further examination. Hemostasis was then assured using electrocautery. Wounds were closed by advancing the inferior portion of the incision laterally to create a advancement flap using 3-0 Polysorb sutures. Dermis was then reapproximated using interrupted 3-0 Polysorb sutures. Skin was then closed using interrupted 3-0 nylon sutures. Sterile dressings consisting of fluff gauze and paper tape were then applied. The patient tolerated the procedure well. Sponge, instrument, and needle counts reported as correct. The patient was transferred to PACU in stable condition.
[2022-08-04 09:33] VITALS: BP 147/82; PULSE 92; RESP 18; TEMP 36.7; O2SAT 100
[2022-08-04 09:38] VITALS: BP 133/75; PULSE 118; RESP 18; O2SAT 100
[2022-08-04 09:43] VITALS: BP 136/77; PULSE 101; RESP 16; O2SAT 100
[2022-08-04 09:49] VITALS: BP 152/94; PULSE 102; RESP 16; O2SAT 100
[2022-08-04] MEDS: Acetaminophen 325 MG TABLET 650 MG PO (09:59)
[2022-08-04 10:04] VITALS: BP 157/95; PULSE 92; RESP 16; TEMP 36.8; O2SAT 100
== END 2022-08-04 10:24 | disposition home or self-care (01) ==
PROVIDERS: Nurse Practitioner; PCP Internal Medicine; Visit Provider Surgery
PROC: (CPT 11450; principal; 2022-08-04 07:30)
DX: L73.2 Hidradenitis suppurativa (principal); E03.9 Hypothyroidism, unspecified; Z79.899 Other long term (current) drug therapy; Z98.890 Other specified postprocedural states
CPT/HCPCS: 11450; 81025; 88305; J0690; J1100; J1170; J2250; J2370; J2405; J3010

== ENCOUNTER → 2022-08-12 09:05 | Outpatient (BNVA) | payer OTHER, SELFPAY | PROVIDERS: PCP Internal Medicine; Visit Provider Surgery | DX: Z48.817 Encounter for surgical aftercare following surgery on the skin and subcutaneous tissue (principal); L73.2 Hidradenitis suppurativa | CPT/HCPCS: 99212 ==

== ENCOUNTER → 2022-08-19 11:10 | Outpatient (BNVA) | payer OTHER, SELFPAY | PROVIDERS: PCP Internal Medicine; Visit Provider Surgery | DX: L73.2 Hidradenitis suppurativa (principal); Z79.891 Long term (current) use of opiate analgesic; Z79.899 Other long term (current) drug therapy | CPT/HCPCS: 99212 ==

== ENCOUNTER 2022-08-25 10:11 | Outpatient (RCR) | payer OTHER, SELFPAY | END 2022-12-19 14:10 | disposition home or self-care (01) | LOC: HO.WCC 10:11 | PROVIDERS: PCP Internal Medicine; Visit Provider Physician Assistant | DX: L98.492 Non-pressure chronic ulcer of skin of other sites with fat layer exposed (principal); L73.2 Hidradenitis suppurativa; L91.0 Hypertrophic scar | CPT/HCPCS: 97602; 99213 ==

== ENCOUNTER → 2022-11-03 13:01 | Outpatient (BNVA) | payer OTHER, SELFPAY | PROVIDERS: PCP Internal Medicine; Visit Provider Internal Medicine | DX: L73.2 Hidradenitis suppurativa (principal) | CPT/HCPCS: 99212 ==

== ENCOUNTER 2023-07-20 15:35 | Outpatient (AMB) | payer OTHER, SELFPAY ==
--- NOTE | 2023-07-20 16:09 | AM.OFFVISNUR ---
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 I discussed with Dr. Coffey before appointment. Offered patient a blood test for Tspot instead of the skin test. Patient wishes to pursue with the skin test and come back for a reading in 48-72 hours. Patient was notified that we do not have a nurse on Thursday and that she should come on 07/22 before 1600. Patient verbalized understanding. Low Pressure Firer Required: No Allergies No Known Allergies Allergy (Verified 08/19/22 11:54) Office Meds tuberculin PPD 5 tub. unit/0.1 mL intradermal injection solution Performing Provider: Arabella King MD [facility] Administered by: Edy Herrera RN on 07/20/23 16:00 Dose Route Admin Location Dispensed Lot Number Expiration Date [employer] Clerk 0.1 mL intradermal left forearm intradermal 0.1 mL [id number] 08/16/26 38928-868-55 [employer] Comments: patient consented for skin test. tolerated well. patient educated to return on before 1600 for reading. patient agreed. Coding Assessment & Plan Assessment & Plan Orders: Orders AMB PPD Planted Today Z11.1 - Encounter for screening for respiratory tuberculosis
== END 2023-07-20 16:06 | disposition home or self-care (01) ==
PROVIDERS: PCP Internal Medicine; Visit Provider Internal Medicine
DX: Z11.1 Encounter for screening for respiratory tuberculosis (principal)
CPT/HCPCS: 86580

== ENCOUNTER 2023-09-02 15:54 | Outpatient (REF) | payer OTHER, SELFPAY ==
[2023-09-02 17:37] LABS: Thyroid Stimulating Hormone 2.25 uIU/mL (0.32-4.0)
== END 2023-09-02 15:55 | disposition home or self-care (01) ==
LOC: HO.LAB 15:54
PROVIDERS: PCP Internal Medicine; Visit Provider Internal Medicine
DX: E03.9 Hypothyroidism, unspecified (principal)
CPT/HCPCS: 36415; 84443

== ENCOUNTER 2023-09-02 16:46 | Outpatient (AMB) | payer OTHER, SELFPAY ==
--- NOTE | 2023-09-02 16:48 | A.OFFPC_ITS ---
Vital Signs 09/02/23 16:49 Height 5 ft 3 in Weight 177 lb BMI 31.4 BP 140/92 H Blood Pressure Location Lt brachial Position Sitting Intake Visit Reasons: Follow Up Intake Note: Patient here for a follow up Doctor Assistant Required: No Accompanied by: Self / Same As Patient Allergies No Known Allergies Allergy (Verified 09/02/23 17:08) Medication List - Last Reconciled 09/02/23 by Arabella King MD levothyroxine 88 mcg PO DAILY 90 days Tobacco use date assessed: 09/02/23 Dental Screening Dental Screen Date: 09/02/23 Did you have a dental visit in the last 12 months?: Yes Did you have a dental problem in the last 6 months where you did not have access to dental care?: No Was dental information given to patient?: Patient has dentist HPI HPI Comments History of Present Illness Details This is a 33-year-old female with hypothyroidism and suppurative hidradenitis that comes today for follow-up on her conditions. TSH pending. Would like to see Dermatology for her super active hidradenitis. No chest pain or shortness of breath. [facility] Medical History (Updated 09/02/23 @ 17:18 by Arabella King MD) ADD (attention deficit disorder) Immunization due section wound complication Hypothyroid Surgical History History of excision of lesion (08/04/22) Hx of thyroidectomy History of delivery Family History Maternal Aunt Breast cancer Paternal Grandmother Ovarian cancer Social History Housing: House Are you a primary wound care physician to a significant other at home: No Do you presently have visiting nurse or other home services: No Alcohol intake: never Patient Tobacco Use Status: Never used Tobacco e-Cigarette/Vaping Use: Never Used Second Hand Smoke Exposure: No service: No Current occupational status: employed Cognitive needs: No Hearing needs: No Vision needs: Yes Questionnaire PHQ-9 Over the last 2 weeks, how often have you been bothered by any of the following problems? 1. Little interest or pleasure in doing things: not at all 2. Feeling down, depressed, or hopeless: not at all 3. Trouble falling or staying asleep, or sleeping too much: not at all 4. Feeling tired or having little energy: not at all 5. Poor appetite or overeating: not at all 6. Feeling bad about yourself - or that you are a failure or have let yourself or your family down: not at all 7. Trouble concentrating on things, such as reading the newspaper or watching television: not at all 8. Moving or speaking so slowly that other people could have noticed. Or the opposite - being so fidgety or restless that you have been moving around a lot more than usual: not at all 9. Thoughts that you would be better off or of hurting yourself in some way: not at all Total score: 0 Depression Screening Interpretation: Negative Depression Screening Done: Yes 25927 - PHQ-9 Billing: Yes Source: Developed by Drs. Cristopher Arias, Theresa Patterson, Gelacio Avery and colleagues, with an educational josseline from [employer]. Thrive Questionnaire Date Thrive assessed: 09/02/23 I am a: Patient What is your living situation today?: I have a steady place to live Within the past 12 months, did the food you bought not last and you didn't have the money to get more?: Never true Within the past 12 months, did you worry whether your food would run out before you got money to buy more?: Never true Do you have trouble paying for medicines?: No Do you have trouble getting transportation to medical appointments?: No Do you have trouble paying your heating and electricity bill?: No Do you have trouble taking care of your child, family member or friend?: No Do you have trouble with day-to-day activities such as bathing, preparing meals, shopping, managing finances, etc.?: No Are you currently unemployed and looking for a job?: No Are you interested in more education?: No Please select the resources that you would like help with: None Currently or been in a relationship where the following occur: no concerns reported THRIVE Score: 0 AUDIT C Alcohol Use Questionnaire (AUDIT-C) 1. How often do you have a drink containing alcohol?: Never Total Score: 0 NEIDA-7 AMB Questionnaire NEIDA-7 Date NEIDA - 7 assessed: 09/02/23 Feeling nervous, anxious, or on edge: 3 = Nearly every day Not being able to stop or control worryin = Several days Worrying too much about different things: 3 = Nearly every day Trouble relaxin = Not at all Being so restless that it is hard to sit still: 0 = Not at all Becoming easily annoyed or irritable: 0 = Not at all Feeling afraid as if something awful might happen: 0 = Not at all Total NEIDA-7 score (0-4 normal; 5-9 mild; 10-14 moderate; 15-21 severe): 7 Source: Developed by Drs. Cristopher Arias, Theresa Patterson, Gelacio Avery and colleagues, with an educational josseline from [employer]. NEIDA-7 Assessment Billing NEIDA-7 Assessment Tool: NEIDA-7 Assessment 77246 Review of Systems Const All systems reviewed & are unremarkable except as noted in HPI and below Eyes Reports no additional complaints, Denies change in vision and Denies other visual disturbances Card Denies chest pain at rest, Denies chest pain with activity, Denies edema, Denies irregular heart rhythm, Denies claudication, Denies dyspnea, Denies dyspnea on exertion, Denies orthopnea, Denies paroxysmal nocturnal dyspnea and Denies slow heart rate Resp Denies cough, Denies dyspnea and Denies dyspnea on exertion Skin/Breast Reports lesions Physical exam (Primary Care) Vital Signs: Last Vital Signs BP 140/92 H 09/02/23 16:49 BMI result Body Mass Index 31.4 Tobacco/Smoking Status: Tobacco use Status Tobacco use date assessed 09/02/23 09/02/23 16:57 Patient Tobacco Use Status Never used Tobacco 09/02/23 16:57 e-Cigarette/Vaping Use Never Used 09/02/23 16:57 PHQ-9: PHQ-9 Score PHQ-9: Total score 0 09/02/23 17:11 Depression Screening Interpretation: Negative Thrive Assessment: Date of Thrive Assessment Date Thrive assessed 09/02/23 09/02/23 17:02 Currently or been in a relationship where the following occur: no concerns reported Resp Effort & Inspection: normal respiratory effort Auscultation: clear to auscultation bilaterally Cardio Jugular venous distension: no JVD Rate: regular rate Rhythm: regular rhythm Heart sounds: S1 normal heart sound present and S2 normal heart sound present Skin Other: Suppurative hidradenitis in face Extrem General: Yes full ROM Psych Appearance: grossly normal Assessment and Plan Assessment & Plan (1) Suppurative hidradenitis: Comment: She is interested in residential antibiotics or biologics. I have tried Humira in past without good luck at suppression. Code(s): L73.2 - Hidradenitis suppurativa Plan: Referred to dermatology. (2) Hypothyroid: Code(s): E03.9 - Hypothyroidism, unspecified Plan: Continue levothyroxine. Monitor TSH. Orders: Orders Comprehensive [place]. Panel Fast 6 Months Z00.00 - Encounter for general adult medical examination without abnormal findings Lipid Panel 6 Months Z00.00 - Encounter for general adult medical examination without abnormal findings Thyroid Stimulating Hormone 6 Months E03.9 - Hypothyroidism, unspecified Referrals Dermatology Referral L73.2 - Hidradenitis suppurativa [employer] TECHNICIAN Referral Z30.433 - Encounter for removal and reinsertion of intrauterine contraceptive device, Z30.9 - Encounter for contraceptive management, unspecified Coding Level of Care Code Est Pt Level 3 (28205) Diagnoses Suppurative hidradenitis L73.2 Hypothyroid E03.9 Additional Codes NEIDA-7 Assessment Billing - NEIDA-7 Assessment Tool: NEIDA-7 Assessment 55643 ([id number]) Time Spent (min) 18
[2023-09-02 16:49] VITALS: BP 140/92; BMI 31.4
== END 2023-09-02 17:18 | disposition home or self-care (01) ==
PROVIDERS: PCP Internal Medicine; Visit Provider Internal Medicine
DX: L73.2 Hidradenitis suppurativa (principal); E03.9 Hypothyroidism, unspecified
CPT/HCPCS: 99213

== ENCOUNTER 2023-09-30 13:34 | Outpatient (AMB) | payer OTHER, SELFPAY ==
[2023-09-30 14:05] VITALS: BP 120/70; BMI 31.5
--- NOTE | 2023-09-30 14:05 | A.OFFVIS_ITS ---
Vital Signs 09/30/23 14:05 Height 5 ft 3 in Weight 178 lb BMI 31.5 BP 120/70 Intake Visit Reasons: BC Consult Information Interpreted: clinical only Executive Team Leader: Executive Team Leader Present Allergies No Known Allergies Allergy (Verified 09/30/23 14:07) Medication List - Last Reconciled 09/30/23 by Nancy Darden CNM etonogestrel (Nexplanon) subdermal levothyroxine 88 mcg PO DAILY 90 days Is last menstrual period known: No (unknown,nexplanon) Do you need a note to return to daycare/school/sports/work: No HPI HPI BC Consult: Details: Patient wants to switch from Nexplanon which is expiring this month to the depoProvera which she had in the past. [facility] Medical History ADD (attention deficit disorder) Immunization due section wound complication Hypothyroid Surgical History History of excision of lesion (08/04/22) Hx of thyroidectomy History of delivery Family History Maternal Aunt Breast cancer Paternal Grandmother Ovarian cancer Social History Housing: House Are you a primary career development coordinator/teacher to a significant other at home: No Do you presently have visiting nurse or other home services: No Alcohol intake: never Patient Tobacco Use Status: Never used Tobacco e-Cigarette/Vaping Use: Never Used Second Hand Smoke Exposure: No service: No Current occupational status: employed Cognitive needs: No Hearing needs: No Vision needs: Yes Female Reproductive History Menstrual Age of Menarche: 12 Duration of menses: 3-5 days control method: implanted Total pregnancies: 2 Full term: 2 Date of last pap smear: 06/16/16 (per patient,pap negative) History of abnormal pap smear: No Physical Exam Vital Signs: Last Vital Signs BP 120/70 09/30/23 14:05 BMI result Body Mass Index 31.5 Const Other: I palpated the site of her Nexplanon in left arm it is easily palpable in should not prove problematic to remove. Assessment & Plan Assessment & Plan (1) Contraceptive management: Code(s): Z30.9 - Encounter for contraceptive management, unspecified Category: Medical Plan Reviewed her desire to switch from the Nexplanon and go back to Depo-Provera which she had in the past. 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 She is incidentally here with her partner. He was able to recall that she had been on Depo-Provera in between pregnancies as well. Sent a prescription to her pharmacy she will have the nurse visit to get the Depo-Provera and we will have a visit here to remove the Nexplanon. I reviewed my procedure for removing the Nexplanon been answered all her questions to the best of my ability. Medications: New medroxyprogesterone (Depo-Provera) 150 mg IM Q12W 1 mL 5RF Coding Level of Care Code New Pt Level 3 (33627) Diagnoses Contraceptive management Z30.9
== END 2023-09-30 15:03 | disposition home or self-care (01) ==
PROVIDERS: PCP Internal Medicine; Visit Provider Advanced Practice Midwife
DX: Z30.9 Encounter for contraceptive management, unspecified (principal)
CPT/HCPCS: 99203

== ENCOUNTER → 2023-09-30 13:34 | Outpatient (BNVA) | payer OTHER, SELFPAY | PROVIDERS: PCP Internal Medicine; Visit Provider Advanced Practice Midwife | DX: Z30.9 Encounter for contraceptive management, unspecified (principal) | CPT/HCPCS: 99202 ==

== ENCOUNTER 2023-10-19 08:53 | Outpatient (AMB) | payer OTHER, SELFPAY ==
--- NOTE | 2023-10-19 09:05 | AM.OFFVISNUR ---
Intake Vital Signs 10/19/23 09:06 Height 5 ft 3 in Weight 80.739 kg BMI 31.5 Intake Visit Reasons: depo Allergies No Known Allergies Allergy (Verified 09/30/23 14:07) Nursing Note Pranav is here today for a Depo-Provera inj. Nexplanon being removed next week, per pt and MYRONM Katalina's notes. Pt tolerated well no c/o. Office Procedures Depo Questionnaire If YES to any of the following questions, please consult a provider. Date of last injection: 10/19/23 Menstrual pattern since last injection has been: Not Applicable test in office results: Negative Irregular bleeding?: No Breast lumps or other breast changes?: No Changes in weight or appetite?: No Depression or changes in mood?: No Abnormal hair growth or loss?: No Skin problems (rash, acne, discoloration)?: No Pain at the injection site?: No Headaches?: No Nervousness?: No Abdominal pain or cramping?: No Dizziness or nausea?: No Fatigue or weakness?: No Decrease in sexual drive?: No Chest pain or shortness of breath?: No Swelling in arms or legs?: No Form completed by?: Cecilio Manley LPN Office Meds Depo-Provera 150 mg/mL intramuscular syringe Performing Provider: Nancy Darden CNM Performing Location[place] [facility] Administered by: Mila Manley LPN on 10/19/23 09:07 Dose Route Admin Location Dispensed Lot Number Expiration Date [facility] Piano Machine [employer] 150 mg IM left deltoid 1 mL [id number] 08/15/25 17537-479-51 [facility] Results AMB Test Urine AMB Test Urine Negative Last Edit by Mila Manley LPN on 10/19/23 09:14 Coding Level of Care Code Established Pt Est Pt Level 1 (59780) Patient Type Established History Problem Focused Exam Problem Focused Medical Decision Making Straight Forward Time Spent (min) 20 Assessment & Plan Assessment & Plan Orders: Orders AMB Medroxyprogesterone Injection Patient Supplied Today Z30.9 - Encounter for contraceptive management, unspecified Medications: New Depo-Provera (medroxyprogesterone) 150 mg IM ONCE 1 mL 0RF NS Z30.9 - Encounter for contraceptive management, unspecified
[2023-10-19 09:06] VITALS: BMI 31.5
== END 2023-10-19 09:01 | disposition home or self-care (01) ==
LOC: HO.HWS 08:53
PROVIDERS: PCP Internal Medicine; Visit Provider Advanced Practice Midwife
DX: Z30.9 Encounter for contraceptive management, unspecified (principal)

== ENCOUNTER → 2023-10-19 08:53 | Outpatient (BNVA) | payer OTHER, SELFPAY | PROVIDERS: PCP Internal Medicine; Visit Provider Advanced Practice Midwife | DX: Z30.9 Encounter for contraceptive management, unspecified (principal) | CPT/HCPCS: 96372; 99211; J1050 ==

== ENCOUNTER 2023-10-28 10:50 | Outpatient (AMB) | payer OTHER, SELFPAY ==
[2023-10-28 10:57] VITALS: BP 128/74; BMI 31.4
--- NOTE | 2023-10-28 10:57 | MHC.OFFVIS ---
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 Allergies No Known Allergies Allergy (Verified 10/28/23 10:57) Medication List - Last Reconciled 10/28/23 by Nancy Darden CNM etonogestrel (Nexplanon) subdermal levothyroxine 88 mcg PO DAILY 90 days medroxyprogesterone (Depo-Provera) 150 mg IM Q12W Is last menstrual period known: No (Nexplanon) Do you need a note to return to daycare/school/sports/work: No HPI HPI Nexplanon removal: Details: Patient is here for Nexplanon removal she has had it in for 5 years she said it was Holter her that it was good for 5 years in fact she has the card with her that actually does say 5 years it was inserted October 13 and end of 09/2023. She had come for consultation and as for that consultation her decision to start on Depo she received her 1st Depo shot 10/19/2023 9 days ago. She is actually though thinking about going on control pills she feels that she is being reminded that when she is on Depo it makes her angry and so she thinks she would like to try control pills she had trouble remembering them in the past but she thinks she be good now because she is and that old and needs to take her thyroid medicine every day at the same time every day in the morning. She also has HS and severe acne and is awaiting of dermatology referral that isn't going to happen till January. She has had surgical excisions of her HS in the past which did not help and she formed a keloid scars from them. 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 She is working on trying to eat healthy and lose weight but thinks she has to go to the gym because when she exercises at home kids keep interrupting. She has no contraindications to oral contraceptives she does not smoke she has no blood clotting abnormalities and no liver problems or cancers. [facility] [place] Medical History ADD (attention deficit disorder) Immunization due section wound complication Hypothyroid Surgical History History of excision of lesion (08/04/22) Hx of thyroidectomy History of delivery Family History Maternal Aunt Breast cancer Paternal Grandmother Ovarian cancer Social History Housing: House Are you a primary neonatal intensive care nurse to a significant other at home: No Do you presently have visiting nurse or other home services: No Alcohol intake: never Patient Tobacco Use Status: Never used Tobacco e-Cigarette/Vaping Use: Never Used Second Hand Smoke Exposure: No service: No Current occupational status: employed Cognitive needs: No Hearing needs: No Vision needs: Yes Female Reproductive History Menstrual Age of Menarche: 12 control method: progesterone injection (Restarted 10/19/2023 in anticipation removal of Nexplanon today) and implanted (To be removed today 10/28/2023.) Total pregnancies: 2 Full term: 2 Physical Exam Vital Signs: Last Vital Signs BP 128/74 10/28/23 10:57 BMI result Body Mass Index 31.4 Office Procedures Contraception Insert/Removal Details Details: Nexplanon Removal Procedure The patient was placed in a supine position with her non dominant hand resting under her head. The insertion site was located: 8-10cm from the medial epicondyle notch of the humerus, posterior to the sulcus, between the triceps and biceps muscle. The area of the previous implant was identified and the distal tip located. This area was cleansed with an alcohol prep and 2 ml of 2% Lidocaine on a 25 gauge needle and syringe was utilized for adequate anesthesia to the insertion site. After ascertaining adequate anesthesia, the area was prepped with Betadine solution. The skin over the distal tip was incised with a #11 blade scalpel and the capsule was located and entered freeing the implant from the canal. The implant was removed with a gentle tug using a mosquito clamp and removed intact. Direct pressure was applied to the insertion site for hemostasis, minimal bleeding was observed. Steri strips, Tegaderm covering, gauze pads, and Abbey wrap dressing were secured with paper tape. The implant was palpable underneath the skin by myself and the patient. The patient tolerated the procedure well and left the office in good condition. 21539 - Removal Assessment & Plan Assessment & Plan (1) Contraceptive management: Comment: Has Nexplanon in since 2019, removed today 10/28/2023. Started on Depo-Provera 10/19/2023 wishes to change to pills. Rx for pills sent to start 01/09 (Thursday start 12 weeks exactly) in 12 weeks when this Depo is due for re injection. Code(s): Z30.9 - Encounter for contraceptive management, unspecified Category: Medical (2) Encounter for Nexplanon removal: Code(s): Z30.46 - Encounter for surveillance of implantable subdermal contraceptive Category: Medical Plan Patient is here for Nexplanon removal she has had it in for 5 years she said it was Holter her that it was good for 5 years in fact she has the card with her that actually does say 5 years it was inserted October 13 and end of 09/2023. She had come for consultation and as for that consultation her decision to start on Depo she received her 1st Depo shot 10/19/2023 9 days ago. She is actually though thinking about going on control pills she feels that she is being reminded that when she is on Depo it makes her angry and so she thinks she would like to try control pills she had trouble remembering them in the past but she thinks she be good now because she is and that old and needs to take her thyroid medicine every day at the same time every day in the morning. She also has HS and severe acne and is awaiting of dermatology referral that isn't going to happen till January. She has had surgical excisions of her HS in the past which did not help and she formed a keloid scars from them. 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 She is working on trying to eat healthy and lose weight but thinks she has to go to the gym because when she exercises at home kids keep interrupting. She has no contraindications to oral contraceptives she does not smoke she has no blood clotting abnormalities and no liver problems or cancers. Nexplanon was removed from left arm. The patient did have extremely tough skin and resisted incision from the 11. Scalpel. Patient did not bleed very much Steri-Strips placed and Tegaderm placed consider leaving Tegaderm in place for 4 days rather than 3, and resist temptation to check out scar unless there signs and symptoms of infection which case she should seek care. This is in hopes that it maybe minimize keloid formation. Discussed some newer medications that are being used for HS. Discussed her interest in OCPs reviewed how to take them reviewed side effects reviewed contraindications of which she has none. Recommend that she start the oral contraceptives on 01/10/2024 which is exactly 12 weeks from when her Depo-Provera was given. If she starts it late she should use condoms for minimum of 2 weeks and also to cover any gap when she has not on contraception. We will see her in about 5 months to see how she is doing on pills. Orders: Orders AMB Nexplanon/Implanon Insertion - Patient Supply Today Z30.46 - Encounter for surveillance of implantable subdermal contraceptive, Z30.9 - Encounter for contraceptive management, unspecified Medications: New desog-e.estradiol/e.estradiol 0.15-0.02 mgx21 /0.01 mg x 5 Start as directed. 1 tab PO DAILY 84 tabs 4RF Coding Level of Care Code Est Pt Level 3 (39800) Diagnoses Contraceptive management Z30.9 Encounter for Nexplanon removal Z30.46 CPT Codes Details - Contraception: 15691 - Removal ([id number]) Time Spent (min) 45 Comment Nexplanon removal as well as other contraceptive start.
== END 2023-10-28 13:02 | disposition home or self-care (01) ==
PROVIDERS: PCP Internal Medicine; Visit Provider Advanced Practice Midwife
DX: Z30.013 Encounter for initial prescription of injectable contraceptive (principal); Z30.46 Encounter for surveillance of implantable subdermal contraceptive
CPT/HCPCS: 11982; 99213

== ENCOUNTER → 2023-10-28 10:50 | Outpatient (BNVA) | payer OTHER, SELFPAY | PROVIDERS: PCP Internal Medicine; Visit Provider Advanced Practice Midwife | DX: Z30.9 Encounter for contraceptive management, unspecified (principal); Z30.013 Encounter for initial prescription of injectable contraceptive | CPT/HCPCS: 11982; 99212 ==

== ENCOUNTER 2024-03-09 09:21 | Outpatient (AMB) | payer OTHER, SELFPAY ==
--- NOTE | 2024-03-09 09:22 | A.OFFPC_ITS ---
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 Pap smear was few years ago and she will call OBGYN for an appointment for this matter. Had an episode of chest pain about 2 days ago associated with shortness of breath and EKG will be ordered. [facility] Medical History (Updated 03/09/24 @ 09:54 by Arabella King MD) ADD (attention deficit disorder) Immunization due section wound complication Hypothyroid Surgical History History of excision of lesion (08/04/22) Hx of thyroidectomy History of delivery Family History Maternal Aunt Breast cancer Paternal Grandmother Ovarian cancer Father Diabetes mellitus Mother Essential hypertension Social History Housing: House Are you a primary healthcare associate to a significant other at home: No Do you presently have visiting nurse or other home services: No Alcohol intake: never Patient Tobacco Use Status: Never used Tobacco e-Cigarette/Vaping Use: Never Used Second Hand Smoke Exposure: No service: No Current occupational status: employed Cognitive needs: No Hearing needs: No Vision needs: Yes Female Reproductive History Menstrual Age of Menarche: 12 Questionnaire Thrive Questionnaire Date Thrive assessed: 09/02/23 NEIDA-7 AMB Questionnaire NEIDA-7 Date NEIDA - 7 assessed: 09/02/23 Source: Developed by Drs. Cristopher Arias, Theresa Patterson, Gelacio Avery and colleagues, with an educational josseline from [employer]. Review of Systems Const All systems reviewed & are unremarkable except as noted in HPI and below Card Reports chest pain at rest, Denies chest pain with activity, Denies edema, Denies irregular heart rhythm, Denies claudication, Reports dyspnea, Denies dyspnea on exertion, Denies orthopnea, Denies paroxysmal nocturnal dyspnea and Denies slow heart rate Resp Denies cough, Reports dyspnea and Denies dyspnea on exertion GI Denies abdominal pain, Denies change in bowel habits, Denies excessive flatus, Denies nausea and Denies vomiting Denies urinary incontinence, Denies urinary hesitancy and Denies urinary urgency Musc Denies abnormal gait, Denies atrophy, Denies deformity and Denies limited range of motion Skin/Breast Denies bleeding lesions, Denies changing lesions and Denies rash Neuro Denies abnormal gait, Denies behavioral changes and Denies lack of coordination Psych Denies behavioral changes Physical exam (Primary Care) Vital Signs: Last Vital Signs BP 136/82 03/09/24 09:24 BMI result Body Mass Index 31.2 BMI Assessment/Plan discussion: High BMI High, discussed plan: lifestyle, weight reduction, dietary and physical activity Tobacco/Smoking Status: Tobacco use Status Tobacco use date assessed 09/02/23 03/09/24 09:31 Patient Tobacco Use Status Never used Tobacco 03/09/24 09:31 e-Cigarette/Vaping Use Never Used 03/09/24 09:31 Thrive Assessment: Date of Thrive Assessment Date Thrive assessed 09/02/23 03/09/24 09:31 [facility] Head: Yes normal to inspection, Yes normocephalic and Yes atraumatic Ears: external ears normal Eyes General: appearance normal, both eyes and all related structures Eyelids: Yes eyelids normal Conjunctivae: conjunctivae normal Neck Neck: Yes normal visual inspection and Yes supple Resp Effort & Inspection: normal respiratory effort Auscultation: clear to auscultation bilaterally Cardio Jugular venous distension: no JVD Rate: regular rate Rhythm: regular rhythm Heart sounds: S1 normal heart sound present and S2 normal heart sound present GI Inspection: Yes normal to inspection Palpation (GI): Soft to palpation and nontender Auscultation: normal bowel sounds Skin General skin exam: no rashes or lesions noted Neuro General: no focal motor deficits Extrem General: Yes full ROM Psych Appearance: grossly normal Office Procedures Flu Questionnaire Does the patient have a severe egg allergy?: No Immunizations Fluarix Triv [id number] (PF) 45 mcg (15 mcg x 3)/0.5 mL IM syringe Performing Provider: Arabella King MD Performing [facility] [place] [facility] Documented (not given) by: RAJ Mc on 03/09/24 09:32 Reason Not Given: Patient Refused Coding Level of Care Code Est Pt Prev Care 18-39y(01986) Diagnoses Physical exam Z00.00 Time Spent (min) 30 Assessment & Plan Assessment & Plan (1) Physical exam: Code(s): Z00.00 - Encounter for general adult medical examination without abnormal findings Category: Medical Plan: Repeat in a year. Orders: Orders Influenza [id number] Immunization Today Z23 - Encounter for immunization ECG 12 lead EKG Today R07.89 - Other chest pain Thyroid Stimulating Hormone Today E03.9 - Hypothyroidism, unspecified Lipid Panel Today Z00.00 - Encounter for general adult medical examination without abnormal findings Comprehensive [place]. Panel Fast Today Z00.00 - Encounter for general adult medical examination without abnormal findings
[2024-03-09 09:24] VITALS: BP 136/82; BMI 31.2
== END 2024-03-09 09:56 | disposition home or self-care (01) ==
PROVIDERS: PCP Internal Medicine; Visit Provider Internal Medicine
DX: Z23 Encounter for immunization (principal); Z00.00 Encounter for general adult medical examination without abnormal findings

== ENCOUNTER → 2024-03-09 09:21 | Outpatient (BNVA) | payer OTHER, SELFPAY | PROVIDERS: PCP Internal Medicine; Visit Provider Internal Medicine | DX: Z00.00 Encounter for general adult medical examination without abnormal findings (principal); Z28.21 Immunization not carried out because of patient refusal | CPT/HCPCS: 90471 ==

== ENCOUNTER 2024-03-14 09:07 | Outpatient (REF) | payer OTHER, SELFPAY ==
--- NOTE | 2024-03-14 09:17 | ECG_ITS ---
Test Reason : r07.89 cp Blood Pressure : / mmHG Vent. Rate : 085 BPM Atrial Rate : 085 BPM P-R Int : 132 ms QRS Dur : 084 ms QT Int : 372 ms P-R-T Axes : 069 021 036 degrees QTc Int : 442 ms Normal sinus rhythm Nonspecific T wave abnormality Abnormal ECG When compared with ECG of 24-APR-2021 20:54, No significant change was found Referred By: Arabella King Electronically Signed By:ZEESHAN HERNANDEZ
[2024-03-14 10:52] LABS: Alanine Aminotransferase 15 U/L (0-31); Alkaline Phosphatase 49 U/L (39-117); Anion Gap 9 (12-20); Aspartate Amino Transferase 20 U/L (5-31); Bilirubin Total 0.2 mg/dL (0.0-1.0); Blood Urea Nitrogen 10 mg/dL (9-16); Calcium 8.6 mg/dL (8.4-10.2); Carbon Dioxide 28 mmol/L (22-29); Chloride 107 mmol/L (96-108); Cholesterol 120 mg/dL (<200); Estimated Glomerular Filt Rate > 60; Glucose Fasting 87 mg/dL (60-99); HDL Cholesterol 40 mg/dL (>40); LDL Cholesterol Calculated 66 mg/dL (<100); Potassium 3.7 mmol/L (3.3-5.1); Sodium 140 mmol/L (135-145); Total Protein 7.3 g/dL (6.5-8.0); Triglycerides 74 mg/dL (<150)
[2024-03-14 11:11] LABS: Thyroid Stimulating Hormone 3.71 uIU/mL (0.32-4.0)
== END 2024-03-14 09:08 | disposition home or self-care (01) ==
LOC: HO.LAB 09:07
PROVIDERS: PCP Internal Medicine; Visit Provider Internal Medicine
DX: Z00.00 Encounter for general adult medical examination without abnormal findings (principal); E03.9 Hypothyroidism, unspecified; R07.89 Other chest pain
CPT/HCPCS: 36415; 80053; 80061; 84443; 93005

== ENCOUNTER → 2024-03-14 09:17 | Outpatient (BNV) | payer OTHER, SELFPAY | PROVIDERS: PCP Internal Medicine; Visit Provider Internal Medicine | DX: R07.9 Chest pain, unspecified (principal); R94.31 Abnormal electrocardiogram [ECG] [EKG] | CPT/HCPCS: 93010 ==